=== PATIENT | female | born 1970 | race Caucasian/White ===

== ENCOUNTER 2017-10-16 17:03 | Emergency (ER) | payer MEDICAID | END 2017-10-16 20:31 | disposition home or self-care (01) | LOC: FTE 17:03 | DX: L40.9 Psoriasis, unspecified (principal); E11.9 Type 2 diabetes mellitus without complications | CPT/HCPCS: 99284; Z7502 ==

== ENCOUNTER 2017-10-25 09:09 | Emergency (ER) | payer MEDICAID | END 2017-10-25 10:38 | disposition home or self-care (01) | LOC: E/R 09:09 | DX: J02.9 Acute pharyngitis, unspecified (principal) | CPT/HCPCS: 93005; 99284 ==

== ENCOUNTER 2018-07-26 13:39 | Emergency (ER) | payer MEDICAID ==
[2018-07-26 14:39] LABS: URINE BLOOD (Dip) POC 3+ (NEGATIVE); URINE GLUCOSE (Dip) POC Negative (NEGATIVE); URINE KETONES (Dip) POC Negative (NEGATIVE); URINE LEUKOCYTE EST (Dip) POC Negative (NEGATIVE); URINE NITRITE (Dip) POC Negative (NEGATIVE); URINE TOTAL PROTEIN POC Negative (NEGATIVE)
[2018-07-26] MEDS: KETOROLAC 30 MG INJ IM (14:46)
== END 2018-07-26 15:59 | disposition home or self-care (01) ==
LOC: FTE 15:59
DX: M54.41 Lumbago with sciatica, right side (principal); E11.9 Type 2 diabetes mellitus without complications
CPT/HCPCS: 72100; 81003; 81025; 96372; 99284-25